=== PATIENT | female | born 1990 | race American Indian/Alaskan Native ===

== ENCOUNTER 2016-11-03 19:20 | Emergency (ER) | payer MEDICAID ==
[2016-11-03 19:49] VITALS: BP 123/79
== END 2016-11-04 01:45 | disposition left against medical advice (07) ==
LOC: ED 19:20
DX: R56.9 Unspecified convulsions (principal); Z53.21 Procedure and treatment not carried out due to patient leaving prior to being seen by health care provider

== ENCOUNTER 2016-11-12 12:36 | Outpatient (CLI) | payer MEDICAID ==
[2016-11-12 13:06] VITALS: BP 120/75
[2016-11-12 14:07] LABS: Bilirubin,Urine NEG (Negative); Blood,Urine NEG (Negative); Ketones,Urine NEG (Negative); Leukocyte Esterase,Urine NEG (Negative); Mucus,Urine FEW /HPF; Nitrite,Urine NEG (Negative); Protein,Urine <15 mg/dL mg/dL (Negative); Urobilinogen,Urine < 2.0 mg/dL (<2.0); WBC,Urine < 1.0 /HPF (0.0-6.0)
== END 2016-11-12 14:13 | disposition home or self-care (01) ==
LOC: TRG 12:36
PROVIDERS: ATTEND Obstetrics & Gynecology
DX: O48.0 Post-term pregnancy (principal); Z3A.49 Greater than 42 weeks gestation of pregnancy
CPT/HCPCS: 81001; 81025

== ENCOUNTER 2017-10-21 22:08 | Emergency (ER) | payer MEDICAID, OTHER ==
[2017-10-21 22:48] VITALS: BP 110/66
== END 2017-10-22 02:45 | disposition left against medical advice (07) ==
LOC: ED 22:08
DX: M79.645 Pain in left finger(s) (principal); Z53.21 Procedure and treatment not carried out due to patient leaving prior to being seen by health care provider

== ENCOUNTER 2018-01-18 18:37 | Emergency (ER) | payer OTHER ==
[2018-01-18 18:48] VITALS: BP 113/71
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
== END 2018-01-18 19:34 | disposition home or self-care (01) ==
LOC: ED 18:37
DX: L03.116 Cellulitis of left lower limb (principal)
CPT/HCPCS: 99282

== ENCOUNTER 2019-03-19 16:30 | Emergency (ER) | payer OTHER ==
[2019-03-19 17:00] VITALS: BP 126/64
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
== END 2019-03-19 20:00 | disposition home or self-care (01) ==
LOC: ED 16:30
DX: M54.9 Dorsalgia, unspecified (principal); M54.2 Cervicalgia; V89.2XXA Person injured in unspecified motor-vehicle accident, traffic, initial encounter; Y93.89 Activity, other specified; Y92.488 Other paved roadways as the place of occurrence of the external cause; Y99.8 Other external cause status
CPT/HCPCS: 99281